=== PATIENT | male | born 1980 | race Two or more races ===

== ENCOUNTER 2016-11-14 15:05 | Outpatient (CLI) | payer OTHER | END 2016-11-14 15:06 | disposition home or self-care (01) | LOC: NC 15:05 | PROVIDERS: ATTEND Family Medicine | DX: K29.50 Unspecified chronic gastritis without bleeding (principal); Z71.3 Dietary counseling and surveillance; Z68.23 Body mass index [BMI] 23.0-23.9, adult ==